=== PATIENT | male | born 1945 | race African-American/Black ===

== ENCOUNTER 2018-02-04 07:55 | Outpatient (CLI) | payer MEDICARE ==
--- NOTE | 2018-02-04 09:18 | CT ---
LOW DOSE CT SCAN OF CHEST FOR LUNG SCREENING: Date: 02/04/18 HISTORY: COPD. Ex cigarette smoker for 47 years. Hypertension, hypercholesterolemia, and diabetes. COMPARISON: 12/10/16. FINDINGS: The 4.0 mm nodular density associated with linear opacity in the left upper lobe peripherally is stab le. Chronic lung parenchymal changes are again seen in the lungs bilaterally. The tiny pleural based calcified nodule in the peripheral aspect of the right lower lobe measuring about 3.0 mm is stable. M inimal pleural calcifications in the posterior right lung base are again seen. No pleural or pericardial effusions are identified. Vascular calcifications without evidence of aneur ysmal dilatation of the thoracic aorta. Degenerative changes are present in the spine. IMPRESSION: Lung-RADS Category 2. Continue annual screening with LDCT in 12 months. POS: [facility]
== END 2018-02-04 07:56 | disposition home or self-care (01) ==
LOC: CT 07:55
PROVIDERS: ATTEND Internal Medicine
DX: F17.210 Nicotine dependence, cigarettes, uncomplicated (principal); J44.9 Chronic obstructive pulmonary disease, unspecified
CPT/HCPCS: G0297